=== PATIENT | male | born 2005 | race Caucasian/White ===

== ENCOUNTER 2024-02-06 22:32 | Emergency (ER) | payer OTHER ==
[~2024-02-06] VITALS: Ht 180.3 cm; Wt 93.4 kg
[2024-02-06 22:34] VITALS: BP 155/103; PULSE 78; RESP 18; TEMP 97.6; O2SAT 99
[2024-02-06 23:08] VITALS: BP 155/103; PULSE 78; RESP 18; TEMP 97.6; O2SAT 99
[2024-02-07] MEDS: KETOROLAC 30 MG/ML VIAL IM ONE (00:50)
[2024-02-07] MEDS: ACETAMINOPHEN EXTRA STRENGTH 500 MG TAB PO ONE (00:51)
[2024-02-07] MEDS: LORazepam 0.5 MG TAB PO ONE (00:51)
== END 2024-02-07 00:50 | disposition home or self-care (01) ==
LOC: MED 22:32
DX: R07.89 Other chest pain (principal); F41.9 Anxiety disorder, unspecified; R03.0 Elevated blood-pressure reading, without diagnosis of hypertension
CPT/HCPCS: 71045; 93005; 96372; 99283; J1885; Q0092